=== PATIENT | male | born 1965 | race Hispanic/Latino ===

== ENCOUNTER 2017-04-27 13:10 | Emergency (ER) | payer BC, OTHER ==
[2017-04-27 13:19] VITALS: BMI 37.3
[2017-04-27] MEDS ORDERED: Sodium Chloride 0.9% 1,000 ML IV ONE (13:40)
[2017-04-27] MEDS ORDERED: (Novolin R) Insulin Human Regular 100 units/ml vial IV STA (13:41)
[2017-04-27] MEDS ORDERED: Sodium Chloride 0.9% 1,000 ML IV STA (13:44)
--- NOTE | 2017-04-27 13:45 | C.PDOC ---
History Of Present Illness 51 year old male was referred to the ED by Dr. Keating with complaints of persistent hyperglycemia and lethargy beginning earlier today. Patient has a history of depression and was diagnosed with diabetes two days ago. He began BID oral medications that are "unknown" at this time and is in good compliance. However patient is not complaint with a diabetic diet. Patient notes persistent polyuria and polydispia. Outpatient evaluations show normal bladder scan of 48 cc post residual void and abdominal US showing a fatty liver and moderate left hydronephorsis. Patient is status post cholecystectomy and denies fever, nausea, or vomiting. 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 NO present cardiovascular exercise regimen. Has special needs child @ home Time Seen by Provider: 04/27/17 13:28 Chief Complaint (Nursing): High Blood Sugar History Per: Patient History/Exam Limitations: no limitations Onset/Duration Of Symptoms: Hrs Current Symptoms Are (Timing): Still Present Current Diabetic Medications: Oral Medication Associated Infectious Symptoms: denies: Nausea, Vomiting, Diarrhea Recent travel outside of the [place]: No Additional History Per: Prior Records (Dr. Keating referral ) Past Medical History Reviewed: Historical Data, Nursing Documentation, Vital Signs Vital Signs: Last Vital Signs Temp 97.7 F 04/27/17 15:49 Pulse 74 04/27/17 15:49 Resp 20 04/27/17 15:49 BP 122/82 04/27/17 15:49 Pulse Ox 96 04/27/17 15:49 - Medical History PMH: Asthma, Depression Surgical History: Appendectomy, Cholecystectomy - [facility] Procedures DILATION OF LEFT URETER WITH INTRALUMINAL DEVICE, ENDO (08/10/16) INSERTION OF OTHER DEVICE INTO GENITOURINARY TRACT, ENDO (08/10/16) Family History: States: Unknown Family Hx - Social History Hx Tobacco Use: Yes (light smoker) Hx Alcohol Use: No Hx Substance Use: No Review Of Systems Constitutional: Positive for: Weakness (lethargy ), Other (Polydipsia and polyuria. Patient was 293 lbs in September to currently 268 lbs. daytime hypersomnolence, poor concentration, ). Negative for: Fever, Chills Cardiovascular: Negative for: Chest Pain, Palpitations Respiratory: Negative for: Cough, Shortness of Breath Gastrointestinal: Negative for: Nausea, Vomiting, Abdominal Pain, Diarrhea Physical Exam - Physical Exam Appears: Non-toxic, No Acute Distress, Other (Patient is morbidly obese and mildly lethargic. Patient complaining of thrist. ) Skin: Warm, Dry Head: Atraumatic Eye(s): bilateral: Normal Inspection, EOMI Oral Mucosa: Dry Neck: Supple Chest: Symmetrical, No Deformity Cardiovascular: Rhythm Regular Respiratory: Normal Breath Sounds, No Rales, No Rhonchi, No Stridor, No Wheezing Gastrointestinal/Abdominal: Soft, No Tenderness, No Distention, No Guarding, No Rebound, Other (Abdomen is obese ) Extremity: Normal ROM, No Tenderness, No Pedal Edema, No Calf Tenderness, Capillary Refill (good capillary refill, less than two seconds ), No Deformity, No Swelling, Other (Lower extremities are obese) Neurological/Psych: Oriented x3 (Patient is answering questions appropriately ) , Normal Speech, Normal Cognition, Normal Motor, Normal Sensation ED Course And Treatment - Laboratory Results Result Diagrams: 04/27/17 13:55 04/27/17 13:55 Lab Interpretation: Abnormal (+ elev glu) ECG: Interpreted By Ar ECG Rhythm: Sinus Rhythm ECG Interpretation: Normal Rate From EC O2 Sat by Pulse Oximetry: 97 (room air ) Pulse Ox Interpretation: Normal - Radiology CXR: Interpreted by Ar CXR Interpretation: Yes: No Acute Disease Progress Note: EKG and labs were ordered. Patient was given insulin and IV fluids. 1500: recheck FS 248 ok, pt feels better Medical Decision Making Medical Decision Making: morbid obesity with prior dx of JIMMY and many classic s/s: daytime somnolence, difficulty concentrating, difficulty with weight loss d/w Family to refer to Dr. 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 Williamson to increase Metformin to 1000 BID AC and maintain Glyburide 5 mg BID AC- So Metformin 500 BID AC supplemented to existing regimen. Diabetic diet extensively educated with pt (with poor insight) and @ bedside. L ureteral stent placed by Dr. Gallito Lehman 08/26 needs to be removed. Instructed to call today/tomorrow to make appt normal renal function UA clean, defer/DC Cipro 500 BID without active infection. Disposition Doctor Will See Patient In The: Office Counseled Patient/Family Regarding: Studies Performed, Diagnosis - Disposition Disposition: HOME/ ROUTINE Disposition Time: 15:27 Condition: GOOD - Clinical Impression Clinical Impression: Hyperglycemia, Depression, Sleep apnea in adult, Retained ureteral stent - Scribe Statement The provider has reviewed the documentation as recorded by the Scribe Lenora Rosales All medical record entries made by the Scribe were at my direction and personally dictated by me. I have reviewed the chart and agree that the record accurately reflects my personal performance of the history, physical exam, medical decision making, and the department course for this patient. I have also personally directed, reviewed, and agree with the discharge instructions and disposition.
[2017-04-27] MEDS ORDERED: (Novolin R) Insulin Human Regular 100 units/ml vial ONE (13:58)
--- NOTE | 2017-04-27 14:02 | RAD ---
HISTORY: Diabetic COMPARISON: Chest x-ray performed 08/08/16 TECHNIQUE: Chest, one view. FINDINGS: Examination limited by habitus. LUNGS: Mild right basilar subsegmental atelectasis. No focal consolidation. Please note that chest x-ray has limited sensitivity for the detection of pulmonary masses. PLEURA: No significant pleural effusion identified. No definite pneumothorax . CARDIOVASCULAR: The cardiomediastinal silhouette appears within normal limits of size. OSSEOUS STRUCTURES: Degenerative changes. VISUALIZED UPPER ABDOMEN: Unremarkable. OTHER FINDINGS: None. IMPRESSION: Mild right basilar subsegmental atelectasis.
[2017-04-27 14:04] LABS: BASO # 0.1 K/uL (0.0-0.2); EOS # 0.1 K/uL (0.0-0.7); MONO # 0.6 K/uL (0.0-0.8)
[2017-04-27 14:08] LABS: RBC URINE 1 /hpf (0-3); URINE BILIRUBIN NEGATIVE (NEGATIVE); URINE BLOOD NEGATIVE (NEGATIVE); URINE COLOR Straw (YELLOW); URINE GLUCOSE (UA) 3+ mg/dL (Normal); URINE KETONE TRACE mg/dL (NEGATIVE); URINE LEUKOCYTE ESTERASE NEG Leu/uL (Negative); URINE PROTEIN NEGATIVE (NEGATIVE); URINE UROBILINOGEN NORMAL mg/dL (0.2-1.0); WBC URINE 1 /hpf (0-5)
[2017-04-27 14:13] LABS: CHLORIDE 101 mmol/L (98-107); POTASSIUM 3.4 mmol/L (3.6-5.2)
[2017-04-27 14:15] LABS: ALKALINE PHOSPHATASE 92 U/L (38-126); AST/SGOT 19 U/L (17-59); BILIRUBIN,TOTAL 0.7 mg/dL (0.2-1.3); CARBON DIOXIDE 20 mmol/L (22-30); GFR AFRICAN-AMERICAN > 60; TOTAL PROTEIN 6.3 g/dL (6.3-8.3)
[2017-04-27 14:16] LABS: ALT/SGPT 51 U/L (21-72); BLOOD UREA NITROGEN 12 mg/dL (9-20); CALCIUM 7.9 mg/dl (8.6-10.4); GLUCOSE,RANDOM 371 mg/dL (75-110)
[2017-04-27 14:33] LABS: BASO % 1.4 % (0.0-2.0); EOS % 1.3 % (0.0-4.0); HEMATOCRIT 36.5 % (35.0-51.0); LYMPH % 34.7 % (20.0-40.0); MEAN CELL VOLUME 84.8 fL (80.0-94.0); MEAN CORPUSCULAR HEMOGLOBIN 32.1 pg (27.0-31.0); MEAN CORPUSCULAR HGB CONC 37.8 g/dL (33.0-37.0); MEAN PLATELET VOLUME 9.2 fL (7.2-11.7); NRBC % 0.4 % (0.0-2.0); RED CELL DISTRIBUTION WIDTH 12.7 % (11.5-14.5); WHITE BLOOD COUNT 5.6 K/uL (4.8-10.8)
[2017-04-27 15:16] LABS: SODIUM 133 mmol/L (132-148)
[2017-04-27 16:19] VITALS: BP 123/68; PULSE 77; RESP 16; TEMP 98.9; O2SAT 99
--- NOTE | 2017-04-30 17:57 | CARD ---
APPROVED REPORT EKG Measurement Heart [id number] <Conclusion> Normal sinus rhythm Normal ECG
== END 2017-04-27 16:15 | disposition home or self-care (01) ==
LOC: C.ER 13:10 → C.9E 15:18 → UNDOADMIN 15:18 → C.ER 16:15
DX: E11.65 Type 2 diabetes mellitus with hyperglycemia (principal); G47.30 Sleep apnea, unspecified; F32.89 Other specified depressive episodes
CPT/HCPCS: 71010; 80053; 81001; 82009; 82948; 83036; 83880; 84484; 85025; 93005; 96361; 96374; 99285; J7040

== ENCOUNTER 2017-05-04 08:32 | Day surgery (SDC) | payer BC ==
[2017-05-04 08:53] VITALS: BMI 37.6
--- NOTE | 2017-05-04 08:59 | C.PDOC ---
History Of Present Illness 51 y/o patient Hx of IDDM, kidney stones arrives in the ED and complains of excruciating left flank pain that is severe for past few days. The patient was sent by Dr. Lehman to the emergency for possible kidney stones removal. The patient was seen by Dr. Lehman yesterday and was prescribed antibiotics. The patient denies any fever, chills, abd. pain, nausea, vomiting,and UTI symptoms. Ambulate to ED, appears in pain. Time Seen by Provider: 05/04/17 08:52 Chief Complaint (Nursing): Male Genitourinary History/Exam Limitations: no limitations Onset/Duration Of Symptoms: Days Current Symptoms Are (Timing): Still Present Quality Of Discomfort: "Pain". denies: Sharp, Aching Associated Symptoms: denies: Fever, Chills, Nausea, Vomiting Past Medical History Reviewed: Historical Data, Nursing Documentation, Vital Signs Vital Signs: Last Vital Signs Temp 98.5 F 05/04/17 08:49 Pulse 94 H 05/04/17 08:49 Resp 18 05/04/17 12:06 BP 127/85 05/04/17 08:49 Pulse Ox 96 05/04/17 09:54 - Medical History PMH: Asthma, Depression, HTN, Hypercholesterolemia Surgical History: Appendectomy, Cholecystectomy - [facility] Procedures DILATION OF LEFT URETER WITH INTRALUMINAL DEVICE, ENDO (08/10/16) INSERTION OF OTHER DEVICE INTO GENITOURINARY TRACT, ENDO (08/10/16) Family History: States: Unknown Family Hx - Social History Hx Tobacco Use: Yes (light smoker) Hx Alcohol Use: No Hx Substance Use: No - Immunization History Hx Tetanus Toxoid Vaccination: No Hx Influenza Vaccination: No Hx Pneumococcal Vaccination: No Review Of Systems Except As Marked, All Systems Reviewed And Found Negative. Constitutional: Negative for: Fever, Chills Cardiovascular: Negative for: Chest Pain, Light Headedness Respiratory: Negative for: Cough, Shortness of Breath Gastrointestinal: Positive for: Abdominal Pain. Negative for: Nausea, Vomiting Genitourinary: Negative for: Dysuria Neurological: Negative for: Weakness, Numbness Physical Exam - Physical Exam Appears: Well, Non-toxic, No Acute Distress Skin: Normal Color, Warm Head: Normacephalic Nose: No Flaring Oral Mucosa: Moist, No Drooling Throat: No Erythema, No Exudate Neck: Supple Chest: Symmetrical Cardiovascular: Rhythm Regular Respiratory: No Decreased Breath Sounds, No Accessory Muscle Use, No Stridor, No Wheezing Gastrointestinal/Abdominal: No Bowel Sounds, Soft, No Tenderness, No Organomegaly, No Guarding, No Rebound Back: Other (Left flank tenderness) Extremity: Normal ROM, No Pedal Edema, Capillary Refill (<2sec.) Neurological/Psych: Oriented x3, Normal Speech, Normal Cognition ED Course And Treatment - Laboratory Results Result Diagrams: 05/04/17 09:17 05/04/17 09:17 O2 Sat by Pulse Oximetry: 96 Progress Note: Pt reamined stable during the ED evaluation. called and admission to OR requested. Pt aware, agrees with plan. 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 - Scribe Statement The provider has reviewed the documentation as recorded by the Scribe (Noemi Vazquez) All medical record entries made by the Scribe were at my direction and personally dictated by me. I have reviewed the chart and agree that the record accurately reflects my personal performance of the history, physical exam, medical decision making, and the department course for this patient. I have also personally directed, reviewed, and agree with the discharge instructions and disposition.
[2017-05-04] MEDS ORDERED: Sodium Chloride 0.9% 1,000 ML IV ONE (09:06)
[2017-05-04] MEDS ORDERED: Sodium Chloride 0.9% 1,000 ML ONE (09:18)
[2017-05-04 09:21] LABS: BASO # 0.1 K/uL (0.0-0.2); BASO % 1.5 % (0.0-2.0); EOS # 0.1 K/uL (0.0-0.7); EOS % 1.3 % (0.0-4.0); HEMATOCRIT 39.8 % (35.0-51.0); LYMPH # 1.7 K/uL (1.0-4.3); LYMPH % 35.5 % (20.0-40.0); MEAN CORPUSCULAR HEMOGLOBIN 30.2 pg (27.0-31.0); MEAN CORPUSCULAR HGB CONC 34.7 g/dL (33.0-37.0); MEAN PLATELET VOLUME 9.1 fL (7.2-11.7); MONO # 0.6 K/uL (0.0-0.8); MONO % 12.2 % (0.0-10.0); NRBC % 0.1 % (0.0-2.0); RED CELL DISTRIBUTION WIDTH 12.8 % (11.5-14.5); WHITE BLOOD COUNT 4.8 K/uL (4.8-10.8)
[2017-05-04 09:29] LABS: INR 0.9
[2017-05-04 09:34] LABS: CHLORIDE 102 mmol/L (98-107); POTASSIUM 4.7 mmol/L (3.6-5.2); SODIUM 139 mmol/L (132-148)
[2017-05-04 09:36] LABS: BILIRUBIN,TOTAL 0.7 mg/dL (0.2-1.3); GFR AFRICAN-AMERICAN > 60
[2017-05-04 09:37] LABS: ALB/GLOB RATIO 1.2 (1.0-2.1); ALKALINE PHOSPHATASE 82 U/L (38-126); ALT/SGPT 81 U/L (21-72); AST/SGOT 35 U/L (17-59); BLOOD UREA NITROGEN 23 mg/dL (9-20); CALCIUM 9.1 mg/dl (8.6-10.4); CARBON DIOXIDE 25 mmol/L (22-30); GLUCOSE,RANDOM 308 mg/dL (75-110)
[2017-05-04] MEDS ORDERED: (Novolin R) Insulin Human Regular 100 units/ml vial IV ONE (09:51)
[2017-05-04 11:04] LABS: RBC URINE 7 /hpf (0-3); URINE BILIRUBIN NEGATIVE (NEGATIVE); URINE BLOOD 2+ (NEGATIVE); URINE COLOR Yellow (YELLOW); URINE GLUCOSE (UA) 3+ mg/dL (Normal); URINE KETONE TRACE mg/dL (NEGATIVE); URINE LEUKOCYTE ESTERASE NEG Leu/uL (Negative); URINE PROTEIN NEGATIVE (NEGATIVE); URINE UROBILINOGEN NORMAL mg/dL (0.2-1.0); WBC URINE 1 /hpf (0-5)
[2017-05-04] MEDS ORDERED: Iohexol 240 (50 ml) ONE (11:59)
[2017-05-04] MEDS ORDERED: Lidocaine 2% Jelly (Uro-Jet) ONE (11:59)
[2017-05-04] MEDS ORDERED: Lactated Ringer's 1,000 ML IV ONE ×2 (12:03)
[2017-05-04] MEDS: cefTRIAXone IV 1 gm in Dextros 50 ML IVPB ONE ×2 (12:03→12:30)
[2017-05-04] MEDS ORDERED: Midazolam 2 MG/2 ML VIAL ONE (12:21)
[2017-05-04] MEDS ORDERED: Propofol 10 mg/ml Inj (20 ML) ONE (12:21)
[2017-05-04] MEDS ORDERED: Oxycodone/Acetaminophen 5/325 mg Tab PO PRN (12:52)
[2017-05-04] MEDS ORDERED: HYDROmorphone 0.5 mg/0.5 ml ISec IVP PRN (12:58)
[2017-05-04] MEDS ORDERED: Gentamicin 80 mg in 0.9% NS 80 MG/100 ML BAG IVPB SCH (13:00)
[2017-05-04 14:58] VITALS: RESP 18; O2SAT 97
[2017-05-04 15:28] VITALS: BP 113/64; PULSE 65; TEMP 97.7
--- NOTE | 2017-05-04 16:37 | RAD ---
HISTORY: LT. RENAL STONE COMPARISON: Hand radiographs 08/11/2016 FINDINGS: BOWEL: Normal. No obstruction. No free air. Surgical clips are identified in the right upper and right lower quadrants. No gross free intrarenal gas. BONES: Normal. OTHER FINDINGS: A double-J left ureteral stent is again identified placed in position with no definitive radiodensities appreciated adjacent to it to suggest digit definitive calculi. CT can be performed for further characterization if clinically warranted. IMPRESSION: Left double-J ureteral stent identified in position. Surgical clips are seen right upper and lower quadrants.
--- NOTE | 2017-05-04 16:53 | RAD ---
PROCEDURE: HISTORY: Left ureteroscopy COMPARISON: None TECHNIQUE: Total fluoroscopic time utilized during the procedure: 9.5 seconds. Total dose 3.23 mGy cm squared FINDINGS: Submitted images from the current procedure: 4 Please refer to the physician's notes performing the procedure. IMPRESSION: Less than 1 hour fluoroscopic time utilized during performance of the procedure
[2017-05-09 18:58] LABS: STONE SOURCE Left Kidney
--- NOTE | 2017-05-22 07:44 | OP ---
PROCEDURE DATE: PREOPERATIVE DIAGNOSES: Urolithiasis, hematuria, encrusted stent, hydronephrosis, flank pain. POSTOPERATIVE DIAGNOSES: Urolithiasis, hematuria, encrusted stent, hydronephrosis, flank pain. PROCEDURE: Emergency cystoscopy, removal of a left double J-stent, left ureteroscopy, and insertion of left double J-stent with dangles. SURGEON: Harvey Lehman MD ESTIMATED BLOOD LOSS: Less than 10 mL. COMPLICATIONS: There were no complications. At the termination of the procedure, the patient had double J-stent with dangles. INDICATIONS: See the history and physical for further details and emergency operation, very pleasant, but extremely noncompliant gentleman. See multiple office chart notes on this patient. We placed a stent way back in July. After multiple discussions, the patient did not come back in mostly for financial and job reason. Despite we called him several times and requested him to come in. In the interim, the patient has developed new onset diabetes. The patient of Dr. Keating's. What he reports is all the doctors yell at him for his noncompliance. Finally, he came to the emergency room today and we here now for the above-listed procedure, while the patient is here. In fact, he was here about a week or two ago and at that time, the patient was discharged supposed to come back to the office and then he never came. Though he is here today, we are going to everything as much as we can. Explained to the patient risks, benefits, and treatment alternatives were explained, specifically risk of encrusted stones. I do want to mention see the operative report. OPERATIVE FINDINGS: The stent is moderately encrusted, but not overly encrusted and in fact there is no stone within the ureter that I can identify under the direct vision. At the termination of the procedure, I left the double-J stent just to be removed by the patient with dangles just because after having a stent in for so long out of concern for postop instructions, but we did not find any stones. DESCRIPTION OF PROCEDURE: After obtaining informed consent, the patient was placed on the table with the routine monitors were placed. Time-out was called to confirm the patient and positioning. We introduced the cystoscope via the urethra and we noted the encrusted stent. We then removed the stent. The wire passed up to the kidney. The stent was noted. Sent off for specimen analysis. Now, we introduced the flexible ureteroscope all the way up to the kidney. We also went with the rigid scope. There were no definite stones that were identified along the way. We did a left ureteroscopy without identifying any definite stones. At this point, I decided to insert stents with the dangles attached. The bladder was emptied and the cystoscope was removed. Overall, the patient tolerated the procedure well. At the termination, the patient had the double-J stent with dangles. There are no complications. Harvey Lehman MD
--- NOTE | 2017-05-22 10:57 | OP ---
PROCEDURE DATE: 05/04/2017 UROLOGY OPERATIVE REPORT PREOPERATIVE DIAGNOSES: Urolithiasis, hematuria, hydronephrosis, flank pain. POSTOPERATIVE DIAGNOSES: Urolithiasis, hematuria, hydronephrosis, flank pain. PROCEDURES: Cystoscopy, removal of left double-J stent, a left ureteroscopy, and insertion of a left double-J stent with dangler. ESTIMATED BLOOD LOSS: Less than 10 mL. At the termination of the procedure, the patient had the left double-J stent in good location to assist for drainage of the kidney. There were no complications. INDICATIONS: See the history and physical for further details. A very pleasant, but exceedingly noncompliant gentleman. Initially placed the stent back in July. I have extensively reviewed my records, I do not need to even review for this dictated notes. The patient has had multiple phone calls and multiple efforts to try to get him back in. He initially presented with a stone, we placed a stent and subsequently, the patient has not been able to make it for various reasons. Since the original time I saw him, he has also developed diabetes with weight loss, dry mouth, frequency of urination. Despite that and despite we calling him several times and asking him to come in, the patient was not able to make it until now. After discussing options though, the patient is now being brought in as an emergency for the above listed procedures to try and see if we can eliminate the stent. I explained to the patient the risk of stone formation on the stent. See the further details in the procedure. Fortunately, actually it turns out that the stent is not encrusted and was able to be removed, and we were also able to ureteroscope him actually and not see any other stone has developed. See history and physical Harvey Lehman MD
== END 2017-05-04 16:10 | disposition home or self-care (01) ==
LOC: C.SDS 08:32 → C.ER 08:32 → C.SDS 10:05
PROVIDERS: ATTEND Urology
DX: N20.9 Urinary calculus, unspecified (principal); R31.9 Hematuria, unspecified; N13.30 Unspecified hydronephrosis
CPT/HCPCS: 52320; 52332; 74000; 76000; 80053; 81001; 82009; 82365; 82948; 85025; 85610; 85730; 88300; 96361; 96374; 99285; C1769; C2617; J0696; J1170; J1580; J1885; J7040; J7120